=== PATIENT | female | born 1970 ===

== ENCOUNTER 2021-10-22 14:12 | Emergency (ER) | payer SELFPAY ==
[2021-10-22 15:03] VITALS: BP 119/83
[2021-10-22 17:18] LABS: Calcium Oxalate Crystals,Urine 1+; Mucus,Urine 1+ /HPF
[2021-10-22 17:24] LABS: Bilirubin,Urine Negative (Negative); Blood,Urine 3+ (Negative); Color,Urine Straw (Yellow); Urobilinogen,Urine < 2.0 mg/dL (<2.0); WBC,Urine > 182.0 /HPF (0.0-6.0)
== END 2021-10-23 11:25 | disposition left against medical advice (07) ==
LOC: ED 14:12
DX: R35.0 Frequency of micturition (principal); Z53.21 Procedure and treatment not carried out due to patient leaving prior to being seen by health care provider
CPT/HCPCS: 81001